=== PATIENT | female | born 1965 | race Caucasian/White ===

== ENCOUNTER 2023-06-09 20:53 | Observation (INO) | payer BC ==
[2023-06-09] MEDS ORDERED: ACETAMINOPHEN INJECTION 100 ML IVPB ONE (21:33)
[2023-06-09] MEDS ORDERED: ONDANSETRON 4 MG/2 ML VIAL ONE (21:33)
[2023-06-09] MEDS: LACTATED RINGERS SOLUTION 1000 ML INFUS.BAG IV ONE (21:40)
[2023-06-09] MEDS: ACETAMINOPHEN 1000 MG/100 ML BAG IVPB ONE (21:40)
[2023-06-09] MEDS: FAMOTIDINE 20 MG/50 ML IVPB 20 MG/50 ML MG IVPB ONE (21:40)
[2023-06-09] MEDS: ONDANSETRON 4 MG/2 ML VIAL IVPUSH ONE (21:40)
[2023-06-09 21:53] LABS: BASO % 0.4 % (0-2.0); EOS % 0.8 % (0-4.5); HEMATOCRIT 42.7 % (32.4-45.2); HEMOGLOBIN 14.1 GM/dL (10.7-15.3); LYMPH % 20.3 % (8-40); MCH 28.8 pg (25.7-33.7); MEAN CELL VOLUME 87.3 fl (80-96); MEAN PLT VOLUME 8.2 fl (7.5-11.1); MONO % 3.6 % (3.8-10.2); NEUT % 74.9 % (42.8-82.8); PLATELET COUNT 349 10^3/uL (134-434); RBC 4.89 M/mm3 (3.60-5.2); RDW 12.9 % (11.6-15.6); WHITE BLOOD COUNT 16.6 K/mm3 (4.0-10.0)
[2023-06-09 22:15] LABS: POTASSIUM 3.9 mmol/L (3.5-5.1)
[2023-06-09 22:17] LABS: CALCIUM 10.1 mg/dL (8.5-10.1)
[2023-06-09 22:18] LABS: ALBUMIN 4.2 g/dl (3.4-5.0); BLOOD UREA NITROGEN 17.3 mg/dL (7-18); MAGNESIUM 1.8 mg/dL (1.8-2.4)
[2023-06-09 22:20] LABS: CREATININE 0.8 mg/dL (0.55-1.3)
[2023-06-09 22:21] LABS: BILIRUBIN,TOTAL 0.4 mg/dL (0.2-1); TOT PROT 8.7 g/dl (6.4-8.2)
[2023-06-09 22:24] LABS: LACTIC ACID 3.4 mmol/L (0.4-2.0)
[2023-06-09 23:41] LABS: PH,URINE 7.5 (5.0-8.0); URINE APPEARANCE CLEAR; URINE BILIRUBIN NEGATIVE (NEGATIVE); URINE COLOR YELLOW; URINE GLUCOSE (UA) NEGATIVE (NEGATIVE); URINE KETONE NEGATIVE (NEGATIVE); URINE LEUK ESTERASE NEGATIVE (NEGATIVE); URINE NITRITE NEGATIVE (NEGATIVE); URINE PROTEIN NEGATIVE (NEGATIVE); URINE UROBILINOGEN 0.2 mg/dL (0.2-1.0)
[2023-06-09] MEDS ORDERED: dilTIAZem HCL 125 MG/25 ML - 25 ML VIAL ONE (23:45)
[2023-06-09] MEDS: dilTIAZem HCL 50 MG/10 ML - 10 ML VIAL IVPUSH ONE (23:51)
[2023-06-10] MEDS ORDERED: KETOROLAC TROMETHAMINE 15 MG/ML VIAL ONE (00:33)
[2023-06-10] MEDS: KETOROLAC TROMETHAMINE 15 MG/ML VIAL IVPUSH ONE (00:42)
[2023-06-10] MEDS ORDERED: MAG HYDROX/AL HYDROX/SIMETH 30 ML UNIT-DOSE CUP ONE (00:51)
[2023-06-10] MEDS: MAG HYDROX/AL HYDROX/SIMETH 30 ML UNIT-DOSE CUP PO ONE (01:11)
[2023-06-10] MEDS ORDERED: CEFTRIAXONE 1 GM/50 ML BAG ONE (03:55)
[2023-06-10] MEDS: CEFTRIAXONE 1 GM in DEXTROSE 5%-WATER - 50 ML IVPB SCH (04:30)
[2023-06-10 06:18] LABS: HEMATOCRIT 37.9 % (32.4-45.2); HEMOGLOBIN 12.4 GM/dL (10.7-15.3); MCH 28.7 pg (25.7-33.7); MCHC 32.8 g/dl (32.0-36.0); MEAN CELL VOLUME 87.5 fl (80-96); MEAN PLT VOLUME 8.4 fl (7.5-11.1); PLATELET COUNT 324 10^3/uL (134-434); RBC 4.33 M/mm3 (3.60-5.2); RDW 12.9 % (11.6-15.6); WHITE BLOOD COUNT 9.3 K/mm3 (4.0-10.0)
[2023-06-10 06:34] LABS: POTASSIUM 3.8 mmol/L (3.5-5.1)
[2023-06-10 06:41] LABS: ALBUMIN 3.5 g/dl (3.4-5.0); BLOOD UREA NITROGEN 15.5 mg/dL (7-18); MAGNESIUM 1.8 mg/dL (1.8-2.4)
[2023-06-10 06:43] LABS: CREATININE 0.8 mg/dL (0.55-1.3); PHOSPHOROUS 3.8 mg/dL (2.5-4.9)
[2023-06-10 06:44] LABS: BILIRUBIN,TOTAL 0.6 mg/dL (0.2-1); TOT PROT 7.1 g/dl (6.4-8.2)
[2023-06-10] MEDS: OFLOXACIN 0.3% OPHTHALMIC SOLUTION 5 ML BOTTLE OP SCH (08:45)
[2023-06-10] MEDS: INSULIN ASPART SLIDING SCALE (NOVOLOG) 1 VIAL SQ SCH (08:55)
[2023-06-10] MEDS: PATIENT'S OWN MEDICATION (NON-FORMULARY) (Prednisolone Acetate/Pf [Prednisolone Acet 1% Ey OP SCH (09:09)
[2023-06-10] MEDS ORDERED: TRIAMTERENE AND HCTZ - 37.5 MG/25 MG CAPSULE PO SCH (10:00)
[2023-06-10] MEDS: APIXABAN 5 MG TABLET PO SCH (10:05)
[2023-06-10] MEDS: prednisoLONE ACETATE 1% OPHTH SUSP 5 ML BOTTLE OS SCH (11:20)
[2023-06-10] MEDS: SODIUM CHLORIDE 500 ML IV STA (11:30)
[2023-06-10] MEDS: SODIUM CHLORIDE 1,000 ML IV SCH (11:34)
[2023-06-10] MEDS ORDERED: INSULIN (NOVOLOG) ASPART 100 UNITS/ML 10ML VIAL ONE (12:33)
[2023-06-10 14:54] VITALS: BMI 30.2
[2023-06-10] MEDS: ARTIFICIAL TEARS OPHTHALMIC DROPS OS PRN (18:26)
[2023-06-10] MEDS: prednisoLONE ACETATE 1% OPHTH SUSP 5 ML BOTTLE OD SCH (18:27)
[2023-06-10] MEDS ORDERED: SODIUM CHLORIDE 1,000 ML IV SCH (19:30)
[2023-06-10] MEDS: ROSUVASTATIN CA 10 MG TABLET PO SCH (21:10)
[2023-06-10] MEDS: OFLOXACIN 0.3% OPHTHALMIC SOLUTION 5 ML BOTTLE OD SCH (21:14)
[2023-06-11] MEDS: ACETAMINOPHEN 325 MG TABLET (FP) PO PRN (03:51)
[2023-06-11 08:15] LABS: BASO % 0.7 % (0-2.0); EOS % 4.1 % (0-4.5); HEMATOCRIT 33.8 % (32.4-45.2); HEMOGLOBIN 11.1 GM/dL (10.7-15.3); LYMPH % 35.7 % (8-40); MCH 29.2 pg (25.7-33.7); MCHC 32.9 g/dl (32.0-36.0); MEAN CELL VOLUME 88.6 fl (80-96); MEAN PLT VOLUME 8.4 fl (7.5-11.1); MONO % 5.6 % (3.8-10.2); NEUT % 53.9 % (42.8-82.8); PLATELET COUNT 280 10^3/uL (134-434); RBC 3.81 M/mm3 (3.60-5.2); RDW 12.8 % (11.6-15.6); WHITE BLOOD COUNT 8.9 K/mm3 (4.0-10.0)
[2023-06-11 08:17] LABS: POTASSIUM 3.7 mmol/L (3.5-5.1)
[2023-06-11 08:19] LABS: CALCIUM 8.3 mg/dL (8.5-10.1)
[2023-06-11 08:21] LABS: BLOOD UREA NITROGEN 16.4 mg/dL (7-18)
[2023-06-11 08:23] LABS: CREATININE 0.7 mg/dL (0.55-1.3); PHOSPHOROUS 2.4 mg/dL (2.5-4.9)
[2023-06-11 08:25] LABS: BILIRUBIN,TOTAL 0.4 mg/dL (0.2-1); TOT PROT 6.2 g/dl (6.4-8.2)
[2023-06-11] MEDS: NAPH,MB-DB/K PH,MBDB POWDER PACKET PO ONE (09:24)
[2023-06-11 10:38] VITALS: BP 116/72; PULSE 74; RESP 20; TEMP 98.2
== END 2023-06-11 11:55 | disposition home or self-care (01) ==
LOC: JER 20:53 → JERBED 06-10 01:46 → OBSVTOIN 06-10 01:46 → INTOOBSV 06-10 01:46 → J4W 06-10 13:59
PROVIDERS: ADMIT Internal Medicine; ATTEND Internal Medicine
PROC: 3E033NZ Introduction of Analgesics, Hypnotics, Sedatives into Peripheral Vein, Percutaneous Approach (ICD-10-PCS; principal; 2023-06-10)
PROC: 3E03329 Introduction of Other Anti-infective into Peripheral Vein, Percutaneous Approach (ICD-10-PCS; 2023-06-10)
PROC: 3E033GC Introduction of Other Therapeutic Substance into Peripheral Vein, Percutaneous Approach (ICD-10-PCS; 2023-06-10)
PROC: 3E0337Z Introduction of Electrolytic and Water Balance Substance into Peripheral Vein, Percutaneous Approach (ICD-10-PCS; 2023-06-10)
DX: I48.0 Paroxysmal atrial fibrillation (principal); I10 Essential (primary) hypertension; D72.829 Elevated white blood cell count, unspecified; I95.9 Hypotension, unspecified; H40.9 Unspecified glaucoma; E78.5 Hyperlipidemia, unspecified; Z29.89 Encounter for other specified prophylactic measures
CPT/HCPCS: 0241U-QW; 36415; 71045-TC-FY; 74177-TC; 80053; 80061; 81003; 82962; 83036; 83605; 83690; 83735; 84100; 84443; 84484; 85025; 85027; 87040; 87086; 87186; 93005; 93010; 99285-25; G0378; J0131

== ENCOUNTER 2024-01-18 11:32 | Emergency (ER) | payer BC ==
[2024-01-18 11:52] VITALS: BP 104/71; PULSE 84; RESP 16; TEMP 97.5; BMI 28.8
[2024-01-18] MEDS ORDERED: ACETAMINOPHEN INJECTION 100 ML ONE (12:33)
[2024-01-18] MEDS ORDERED: KETOROLAC TROMETHAMINE 15 MG/ML VIAL ONE (12:33)
[2024-01-18] MEDS: KETOROLAC TROMETHAMINE 15 MG/ML VIAL IVPUSH ONE (12:39)
[2024-01-18] MEDS: ACETAMINOPHEN 1000 MG/100 ML BAG IVPB ONE (12:39)
[2024-01-18] MEDS: SODIUM CHLORIDE 0.9% 500 ML INFUS.BAG IV ONE (12:39)
[2024-01-18 12:43] LABS: EOS % 1.3 % (0-4.5); HEMATOCRIT 38.6 % (32.4-45.2); HEMOGLOBIN 12.8 GM/dL (10.7-15.3); LYMPH % 33.7 % (8-40); MCH 28.9 pg (25.7-33.7); MCHC 33.3 g/dl (32.0-36.0); MEAN CELL VOLUME 86.7 fl (80-96); MEAN PLT VOLUME 8.7 fl (7.5-11.1); MONO % 8.9 % (3.8-10.2); NEUT % 55.1 % (42.8-82.8); PLATELET COUNT 263 10^3/uL (134-434); RBC 4.45 M/mm3 (3.60-5.2); RDW 13.1 % (11.6-15.6); WHITE BLOOD COUNT 5.5 K/mm3 (4.0-10.0)
[2024-01-18 13:04] LABS: POTASSIUM 3.6 mmol/L (3.5-5.1)
[2024-01-18 13:06] LABS: ALBUMIN 3.8 g/dl (3.4-5.0); BLOOD UREA NITROGEN 23.3 mg/dL (7-18); CALCIUM 9.1 mg/dL (8.5-10.1); MAGNESIUM 2.1 mg/dL (1.8-2.4)
[2024-01-18 13:10] LABS: CREATININE 0.7 mg/dL (0.55-1.3)
[2024-01-18 13:11] LABS: BILIRUBIN,TOTAL 0.6 mg/dL (0.2-1); TOT PROT 7.2 g/dl (6.4-8.2)
== END 2024-01-18 14:48 | disposition home or self-care (01) ==
LOC: JER 11:32
PROC: 3E033NZ Introduction of Analgesics, Hypnotics, Sedatives into Peripheral Vein, Percutaneous Approach (ICD-10-PCS; principal; 2024-01-18)
PROC: 3E0333Z Introduction of Anti-inflammatory into Peripheral Vein, Percutaneous Approach (ICD-10-PCS; 2024-01-18)
DX: R51.9 Headache, unspecified (principal); H53.149 Visual discomfort, unspecified; Z20.822 Contact with and (suspected) exposure to COVID-19
CPT/HCPCS: 0241U-QW; 36415; 70450-TC; 80053; 83735; 85025; 99284-25; J0131